=== PATIENT | female | born 1995 | race Caucasian/White ===

== ENCOUNTER 2020-05-12 10:09 | Outpatient (RCR) | payer OTHER, MEDICAID, SELFPAY ==
--- NOTE | 2020-05-12 17:07 | PT.OIE ---
Current Diagnoses Pelvic and perineal pain (05/12/20) Encounter for routine follow-up (05/12/20) Visit Care Team Role Provider Type Fede Aguilera MD Primary Care Provider Non-Staff Specialty: Family Practice Address: [address] [place] [address], [id number] Email: Indu Tavarez MD Attending Provider Non-Staff Referring Provider Specialty: POLICE JUDGE Address: [address] [place] [address], [id number] Email: Physical Therapy Initial Evaluation PT-OP-A Visit Information Start: 05/09/20 18:06 Freq: Status: Active Protocol: Document 05/12/20 10:32 LRN (Rec: 05/12/20 11:22 LRN [id number]) Out-Patient Physical Therapy Visit Information Visit Information Visit Type Initial Evaluation Visit Start Time 10:32 Visit Stop Time 11:22 Total Visit Minutes 50 Visit Number 1 Evaluation Information Evaluation Date 05/12/20 Precautions Precautions Depression Migraines 1-2x/week PT-OP-B Current Condition Start: 05/09/20 18:06 Freq: Status: Active Protocol: Document 05/12/20 10:32 LRN (Rec: 05/12/20 11:22 LRN [id number]) Current Condition History of Current Condition Onset Date Day after 04/18/20 childbearing Current Complaints Sharp pain in anterior hip and pressure above pubic bone, like pushing History of Current Condition Bilateral anterior hip and abdominal pain that is constant. Not as bad when lying down. Standing, has to shift weight back and forth. Having trouble walking due to the pain, driving is almost impossible. Not at physical therapy for perineal pain or urinary incontinence, but just for hip and abdominal pain. Prior Treatments and Tests Pain medications one week post and found it helpful. No longer on the medication. Future Testing and Treatments Planned None Treatment Goals Patient/Caregiver Goals Pt goal is to return to prior function to help with depression (walked to park, walked around the park, stood while child played on jungle gym for 45', sit for lunch 30' , play another 10-20', then head home for a 1 mile walk. 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 Baseline Function- Other Walked sometimes to Park with son. Current Functional Impairments (Reported) Functional Limitations- ADL's Having difficulty walking, driving, sitting (tolerance upright 1 hour while shifting weight on hips side to side). Pain with ADLs (dressing, bathing, toileting). Not lifting 2 yr old but difficulty carrying infant who weighs ~8#. Functional Limitations- Mobility/Gait Can ambulate stairs, but no stairs at home. Personal Factors Other Personal Factors That May Effect Has 2 yr old and 24 day (today Therapy/Recovery ) at home. 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 PT-OP-C Subjective Start: 05/09/20 18:06 Freq: Status: Active Protocol: Document 05/12/20 10:32 LRN (Rec: 05/12/20 13:30 LRN [id number]) Patient Questionnaires Pelvic Pain and Urgency/Frequency Patient Symptom Scale Pelvic Pain Score 15 OP-PT Pain Assessment Pain Assessment Grid Paper Pain Assessment Grid Completed Yes Location Lower abdomen Pain Location Details Lower abdomen superior to pubic symphysis Intensity 6 Scale Used Numeric (0 - 10) Description Pressure Frequency Constant Other Pain Alleviating Factors Supine position relieves pain temporarily. R hip Pain Location Details Anterior, lateral hip & TFL Intensity 6 Scale Used Numeric (0 - 10) Description Aching,Sharp,Shooting Frequency Constant Pain Aggravating Factors Activity,Standing,Sitting Other Pain Aggravating Factors Weightbearing Other Pain Alleviating Factors Supine position relieves pain temporarily. Patient Stated Pain Goal 0/10 L hip Pain Location Details Anterior, lateral hip, and TFL Intensity 6 Scale Used Numeric (0 - 10) Description Aching,Sharp,Shooting Frequency Constant Pain Aggravating Factors Activity,Standing,Sitting Other Pain Alleviating Factors Supine position relieves pain temporarily. Patient Stated Pain Goal 0/10 PT-OP-G Mobility & Gait Start: 05/09/20 18:06 Freq: Status: Active Protocol: Document 05/12/20 10:32 LRN (Rec: 05/12/20 13:30 LRN [id number]) OP Mobility Evaluation Bed Mobility Supine to and from Sit Pt demonstrates very poor body mechanics and lies back in long sit position. Transfers Sit to Stand Independent and slow. OP Gait Assessment Gait Gait Assistance Required: Independent Distance (Feet) 200 Able to Maintain Weight Bearing Status Yes During Gait Assistive Devices Assistive Device None Gait Deviations General Gait Pattern Decreased Stride Length,Wide Based Gait Factors Limiting Gait Function Factors Limiting Gait Function Pain Comments Gait Comments Pt ambulates very slowly. PT-OP-J Posture/Palpation/Skin Start: 05/09/20 18:06 Freq: Status: Active Protocol: Document 05/12/20 10:32 LRN (Rec: 05/12/20 16:15 LRN [id number]) Posture Evaluation Comments Posture Comments Standing: Endomorphic Body type. Low L shoulder, trunk tilted L, varies standing leg, initially holds L leg in ABD position and later stood L with R knee flexed. Pelvis appears level. Palpation Assessment Location Leg lengths Palpation Location Medial Malleolus Palpation Details R leg long in supine and long sit. Pubic Symphysis Palpation Location Very tender at Pubic Symphysis joint Palpation Findings Tenderness Palpation Details Slight pubic symphysis separation. Pelvis in supine Palpation Location ASIS, TFL, Upper Gluteals, lower abdomen Palpation Findings Muscle Guarding,Tenderness Palpation Details Pt flinches with light touch. PT-OP-K Range of Motion Start: 05/09/20 18:06 Freq: Status: Active Protocol: Document 05/12/20 10:32 LRN (Rec: 05/12/20 16:15 LRN [id number]) Hip Goniometric Range of Motion Hip Right Passive Hip ROM WFL No Testing Position Supine Flexion w/Knee Flexed 90 Straight Leg Raise 37 Abduction 9 Internal Rotation 0 External Rotation 3 Left Passive Hip ROM WFL No Testing Position Supine Flexion w/Knee Flexed 100 Straight Leg Raise 40 Abduction 20 Internal Rotation 0 External Rotation 45 Hip ROM Limitations Hip ROM Limitations Pain PT-OP-M Strength Start: 05/09/20 18:06 Freq: Status: Active Protocol: Document 05/12/20 10:32 LRN (Rec: 05/12/20 16:15 LRN [id number]) Trunk Strength Trunk Manual Muscle Testing Testing Position Supine Core Stabilization Pt not able to maintain core stability with lifting of L LE (trunk freely rotated right). Reason Not Measured Pain Hip Strength Hip Manual Muscle Testing Right Flexion (L2) 1 Trace Abduction 1 Trace Adduction 1 Trace External Rotation 2 Poor Internal Rotation 2 Poor Left Flexion (L2) 2 Poor Abduction 2+ Poor+ Adduction 2+ Poor+ External Rotation 3+ Fair+ Internal Rotation 2 Poor PT-OP-Q Treatments Start: 05/09/20 18:06 Freq: Status: Active Protocol: Document 05/12/20 10:32 LRN (Rec: 05/12/20 16:15 LRN [id number]) Therapeutic Activity Therapeutic Activity Sitting in proper posture Name Proper sit posture Reps/Minutes 1 Comments Pt able to understand after palpating sit bones proper sit posture. Sit<->Supine Name Sit <-> Supine Transfer training. Reps/Minutes 5' Comments Pt was able to perform transfer properly with training and education. Self-Care/Home Management Treatment Education Patient Education Body Mechanics,Posture Other Education Pt educated in proper sit<-> supine transfers, proper sitting posture and proper weight bearing in standing. Discussed mobility restrictions and educated pt in avoiding lifting at this time and to perform a TA contraction before moving, and proper breathing techniques during transfers. Activities Self-Care/Home Management Activities Pt I/S to practice TA contractions prior to and during movement (transfers, ADLs). PT-OP-T Assessment and Plan Start: 05/09/20 18:06 Freq: Status: Active Protocol: Document 05/12/20 10:32 LRN (Rec: 05/12/20 11:22 LRN [id number]) Physical Therapy Assessment Rehab Potential Rehabilitation Potential Good Evaluation Complexity Number of Personal Factors/Comorbidities 1-2 Number of Body Systems Impaired 4 or More Clinical Presentation at Evaluation Evolving Impairments Impairments Activity Tolerance,Functional Mobility,Gait,Pain,ROM,Soft Tissue Mobility,Strength, Transfers Other Concerns Barriers to Rehabilitation Severity of pain at the Symphysis Pubis. Goals Four Impairment Pain limiting function. Short Term Goal (STG) Decrease abdominal pain with pt able to tolerate prolonged standing of 30 minutes. STG Duration 06/23/20 Group Home Goal (LTG) Decrease anterior and lateral hip pain 50% with pt able to tolerate sitting 20'. LTG Duration 08/10/20 Three Impairment Decreased olamide hip mobility Short Term Goal (STG) Improve hip symmetry of hip mobility with decrease in pain with ADLS (dressing, bathing, toileting). STG Duration 06/23/20 Valve Pipe Irrigator Goal (LTG) Pt will be able to tolerate driving with tolerable pain. LTG Duration 08/10/20 Two Impairment Decreased olamide hip strength Short Term Goal (STG) Pt will be able to tolerate moving legs against gravity for strength of 3/5. STG Duration 06/23/20 Valve Pipe Irrigator Goal (LTG) Increase bilateral LE strength to at least 4/5 for pt to be able to return to walking 2 miles to a park and back with minimal complaints of pain. LTG Duration 08/10/20 One Impairment Lacks appropriate self group home program Short Term Goal (STG) Pt will be able to demonstrate proper transfer technique and will be independent on an ex program to reduce Pubic symphysis pain. STG Duration 05/26/20 Group Home Goal (LTG) Pt will be independent with a self care HEP. Pt goal is to return to prior function to help with depression (walk to park, walk around the park, stand while child plays for up to 45', sit for lunch 30', play another 10-20', then walk 1 miles home . Wants to be able to go to the park with her son. Must walk [address], then 1 mile back. 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 She also appears to have a pubic symphysis separation with unknown bony changes. She has weakness of her core with a rectus diastasis that doesn't seem to be too severe, but is limiting her in the ability to stabilizer her core. She is extremely limited in her hip mobility and strength, especially on the R side, probably due to the pelvic obliquity. The pt is less than 8 weeks post ; therefore manual assessment and treatment of the PF ( except external palpation) will be deferred until appropriate healing is complete. Due to the pt's guarded nature any palpation or assessment of the external PF was deferred. The pt may need assessment of her pubic symphysis to rule out any fracture if she is not able to gain relief with stabilization exercises. The pt's insurance is quite limiting, and because of her spouse's availability for watching her children she is only able to attend therapy once per week; therefore progress may be slow. Another concern is that she is scheduled to return to work . She may need more time to heal and strengthen before safely returning to work. The pt will benefit from skilled physical therapy to progress her towards return to prior level of function. Physical Therapy Plan Frequency and Duration Frequency of Treatment 1x/Week Plan of Care Start Date 05/12/20 Plan of Care End Date 08/10/20 Therapeutic Interventions Therapeutic Interventions Home Exercise Program,Manual Therapy,Neuromuscular Re- education,Patient/Caregiver Education,Self-Care/Home Management,Soft Tissue Mobilization,Therapeutic Exercises Modalities Cold Pack/Ice Massage,Hot Packs Other Referrals/Consults Referrals/Consults Recommended Pt will probably need a referral for a pubic symphysis and/or SI belt. Next Visit Focus/Plan Next Note Type Treatment Note Next Visit Plan Review proper transfer techniques, initiate pubic symphysis stabilizing exercises, manual therapy to correct pelvic obliquity and as tolerated to decreased active trigger points of Iliopsoas and TFL, HEP for hip stretches and pelvic stab/ lumbar stab (start roll in/out ex's).
--- NOTE | 2020-05-26 11:43 | PT-OP ANOTE ---
Pt did not show for appt.
--- NOTE | 2020-06-15 16:55 | PT-OP ANOTE ---
Pt notified by phone of appt tomorrow 06/16/20 @ 11:15. Requested the pt call to cancel and speak to therapist regarding therapy due to tomorrow is her last scheduled appt. Pt notified is she DNS or CX without reason than she will be discharged per CX/DNS policy. Note: pt cx'd 2nd appt due to sick child, f/b no show and 2 cancels per televox.
--- NOTE | 2020-06-16 12:31 | PT.OPDS ---
Current Diagnoses Pelvic and perineal pain (05/12/20) Encounter for routine follow-up (05/12/20) Visit Care Team Role Provider Type Fede Aguilera MD Primary Care Provider Non-Staff Specialty: Family Practice Address: [address] [place] [address], [id number] Email: Indu Tavarez MD Attending Provider Non-Staff Referring Provider Specialty: BACTERIOLOGY TEACHER Address: [address] [place] [address], [id number] Email: Visit Number Visit Number 1 Discharge Summary PT-OP-B Current Condition Start: 05/09/20 18:06 Freq: Status: Active Protocol: Document 05/12/20 10:32 LRN (Rec: 05/12/20 11:22 LRN [id number]) Current Condition History of Current Condition Onset Date Day after 04/18/20 childbearing Current Complaints Sharp pain in anterior hip and pressure above pubic bone, like pushing History of Current Condition Bilateral anterior hip and abdominal pain that is constant. Not as bad when lying down. Standing, has to shift weight back and forth. Having trouble walking due to the pain, driving is almost impossible. Not at physical therapy for perineal pain or urinary incontinence, but just for hip and abdominal pain. Prior Treatments and Tests Pain medications one week post and found it helpful. No longer on the medication. Future Testing and Treatments Planned None Treatment Goals Patient/Caregiver Goals Pt goal is to return to prior function to help with depression (walked to park, walked around the park, stood while child played on [employer] gym for 45', sit for lunch 30' , play another 10-20', then head home for a 1 mile walk. 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 Baseline Function- Other Walked sometimes to Park with son. Current Functional Impairments (Reported) Functional Limitations- ADL's Having difficulty walking, driving, sitting (tolerance upright 1 hour while shifting weight on hips side to side). Pain with ADLs (dressing, bathing, toileting). Not lifting 2 yr old but difficulty carrying who weighs ~8#. Functional Limitations- Mobility/Gait Can ambulate stairs, but no stairs at home. Personal Factors Other Personal Factors That May Effect Has 2 yr old and 24 day (today Therapy/Recovery ) infant at home. 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 PT-OP-C Subjective Start: 05/09/20 18:06 Freq: Status: Active Protocol: Document 05/12/20 10:32 LRN (Rec: 05/12/20 13:30 LRN [id number]) Patient Questionnaires Pelvic Pain and Urgency/Frequency Patient Symptom Scale Pelvic Pain Score 15 OP-PT Pain Assessment Pain Assessment Grid Paper Pain Assessment Grid Completed Yes Location Lower abdomen Pain Location Details Lower abdomen superior to pubic symphysis Intensity 6 Scale Used Numeric (0 - 10) Description Pressure Frequency Constant Other Pain Alleviating Factors Supine position relieves pain temporarily. R hip Pain Location Details Anterior, lateral hip & TFL Intensity 6 Scale Used Numeric (0 - 10) Description Aching,Sharp,Shooting Frequency Constant Pain Aggravating Factors Activity,Standing,Sitting Other Pain Aggravating Factors Weightbearing Other Pain Alleviating Factors Supine position relieves pain temporarily. Patient Stated Pain Goal 0/10 L hip Pain Location Details Anterior, lateral hip, and TFL Intensity 6 Scale Used Numeric (0 - 10) Description Aching,Sharp,Shooting Frequency Constant Pain Aggravating Factors Activity,Standing,Sitting Other Pain Alleviating Factors Supine position relieves pain temporarily. Patient Stated Pain Goal 0/10 PT-OP-G Mobility & Gait Start: 05/09/20 18:06 Freq: Status: Active Protocol: Document 05/12/20 10:32 LRN (Rec: 05/12/20 13:30 LRN [id number]) OP Mobility Evaluation Bed Mobility Supine to and from Sit Pt demonstrates very poor body mechanics and lies back in long sit position. Transfers Sit to Stand Independent and slow. OP Gait Assessment Gait Gait Assistance Required: Independent Distance (Feet) 200 Able to Maintain Weight Bearing Status Yes During Gait Assistive Devices Assistive Device None Gait Deviations General Gait Pattern Decreased Stride Length,Wide Based Gait Factors Limiting Gait Function Factors Limiting Gait Function Pain Comments Gait Comments Pt ambulates very slowly. PT-OP-J Posture/Palpation/Skin Start: 05/09/20 18:06 Freq: Status: Active Protocol: Document 05/12/20 10:32 LRN (Rec: 05/12/20 16:15 LRN [id number]) Posture Evaluation Comments Posture Comments Standing: Endomorphic Body type. Low L shoulder, trunk tilted L, varies standing leg, initially holds L leg in ABD position and later stood L with R knee flexed. Pelvis appears level. Palpation Assessment Location Leg lengths Palpation Location Medial Malleolus Palpation Details R leg long in supine and long sit. Pubic Symphysis Palpation Location Very tender at Pubic Symphysis joint Palpation Findings Tenderness Palpation Details Slight pubic symphysis separation. Pelvis in supine Palpation Location ASIS, TFL, Upper Gluteals, lower abdomen Palpation Findings Muscle Guarding,Tenderness Palpation Details Pt flinches with light touch. PT-OP-K Range of Motion Start: 05/09/20 18:06 Freq: Status: Active Protocol: Document 05/12/20 10:32 LRN (Rec: 05/12/20 16:15 LRN [id number]) Hip Goniometric Range of Motion Hip Right Passive Hip ROM WFL No Testing Position Supine Flexion w/Knee Flexed 90 Straight Leg Raise 37 Abduction 9 Internal Rotation 0 External Rotation 3 Left Passive Hip ROM WFL No Testing Position Supine Flexion w/Knee Flexed 100 Straight Leg Raise 40 Abduction 20 Internal Rotation 0 External Rotation 45 Hip ROM Limitations Hip ROM Limitations Pain PT-OP-M Strength Start: 05/09/20 18:06 Freq: Status: Active Protocol: Document 05/12/20 10:32 LRN (Rec: 05/12/20 16:15 LRN [id number]) Trunk Strength Trunk Manual Muscle Testing Testing Position Supine Core Stabilization Pt not able to maintain core stability with lifting of L LE (trunk freely rotated right). Reason Not Measured Pain Hip Strength Hip Manual Muscle Testing Right Flexion (L2) 1 Trace Abduction 1 Trace Adduction 1 Trace External Rotation 2 Poor Internal Rotation 2 Poor Left Flexion (L2) 2 Poor Abduction 2+ Poor+ Adduction 2+ Poor+ External Rotation 3+ Fair+ Internal Rotation 2 Poor PT-OP-T Assessment and Plan Start: 05/09/20 18:06 Freq: Status: Active Protocol: Document 06/16/20 12:25 LRN (Rec: 06/16/20 12:31 LRN [id number]) Physical Therapy Assessment Goals Four Impairment Pain limiting function. Short Term Goal (STG) Decrease abdominal pain with pt able to tolerate prolonged standing of 30 minutes. STG Duration 06/23/20 GOAL NOT MET DUE TO LACK OF ATTENDANCE Glass Melt Operator Goal (LTG) Decrease anterior and lateral hip pain 50% with pt able to tolerate sitting 20'. LTG Duration 08/10/20 GOAL NOT MET DUE TO LACK OF ATTENDANCE Three Impairment Decreased olamide hip mobility Short Term Goal (STG) Improve hip symmetry of hip mobility with decrease in pain with ADLS (dressing, bathing, toileting). STG Duration 06/23/20 GOAL NOT MET DUE TO LACK OF ATTENDANCE Senior Care Goal (LTG) Pt will be able to tolerate driving with tolerable pain. LTG Duration 08/10/20 GOAL NOT MET DUE TO LACK OF ATTENDANCE Two Impairment Decreased olamide hip strength Short Term Goal (STG) Pt will be able to tolerate moving legs against gravity for strength of 3/5. STG Duration 06/23/20 GOAL NOT MET DUE TO LACK OF ATTENDANCE Senior Care Goal (LTG) Increase bilateral LE strength to at least 4/5 for pt to be able to return to walking 2 miles to a park and back with minimal complaints of pain. LTG Duration 08/10/20 GOAL NOT MET DUE TO LACK OF ATTENDANCE One Impairment Lacks appropriate self pen[facility] program Short Term Goal (STG) Pt will be able to demonstrate proper transfer technique and will be independent on an ex program to reduce Pubic symphysis pain. STG Duration 05/26/20 GOAL NOT MET DUE TO LACK OF ATTENDANCE Senior Care Goal (LTG) Pt will be independent with a self care HEP. Pt goal is to return to prior function to help with depression (walk to park, walk around the park, stand while child plays for up to 45', sit for lunch 30', play another 10-20', then walk 1 miles home . Wants to be able to go to the park with her son. Must walk [address], then 1 mile back. LTG Duration 08/10/20 GOAL NOT MET DUE TO LACK OF ATTENDANCE Assessment Summary Assessment Pt only attended her initial evaluation. Physical Therapy Plan Discharge Physical Therapy Discharge Reasons No Longer Attending PT Discharge Comments Pt only attended her initial evaluation. She cancelled the first treatment visit and failed to show for the remaining 4 visits. The pt is being discharged for non- compliance.
== END 2020-06-20 10:55 ==
LOC: PHYS 10:09
PROVIDERS: PCP Family Medicine; Referring Provider Obstetrics & Gynecology; Visit Provider Obstetrics & Gynecology
DX: R10.2 Pelvic and perineal pain (principal); Z39.2 Encounter for routine postpartum follow-up
CPT/HCPCS: 97162; 97530